=== PATIENT | female | born 1960 | race African-American/Black ===

== ENCOUNTER 2016-11-29 12:44 | Emergency (ER) | payer OTHER ==
[2016-11-29 13:14] LABS: BILIRUBIN NEGATIVE (NEGATIVE); BLOOD 1+ Ery/uL (NEGATIVE); CLARITY CLEAR (CLEAR); COLOR YELLOW (YELLOW); GLUCOSE (U) NORMAL (NORMAL); KETONE (U) NEGATIVE (NEGATIVE); LEUKOCYTES NEGATIVE Leu/uL (NEGATIVE); NITRITE NEGATIVE (NEGATIVE); PROTEIN 2+ mg/dL (NEGATIVE); SPECIFIC GRAVITY 1.025 (1.001-1.030); pH 7.5 (5.0-9.0)
[2016-11-29 13:20] LABS: BACTERIA TRACE; SQUAMOUS EPITHELIAL CELLS RARE; URINARY WBC RARE
[2016-11-29 13:21] LABS: AMPHETAMINES NEGATIVE (NEGATIVE); BARBITURATES NEGATIVE (NEGATIVE); BENZODIAZEPINES NEGATIVE (NEGATIVE); COCAINE NEGATIVE (NEGATIVE); MARIJUANA (THC) NEGATIVE (NEGATIVE); MUCOUS LARGE
[2016-11-29 13:22] LABS: METHADONE NEGATIVE (NEGATIVE); TRICYCLIC ANTIDEPRESSANT NEGATIVE (NEGATIVE)
[2016-11-29 14:38] LABS: HCT 41.9 % (37.0-47.0); HGB 14.8 g/dl (12.5-16.0); MCH 35.1 pg (25.0-31.0); MCHC 35.3 g/dL (32.0-36.0); MCV 99.3 fL (78.0-100.0); MPV 10.9 fL (6.0-9.5); PLT 172 K/uL (150-400); RBC 4.22 M/uL (4.20-5.40); RDW 15.3 % (11.5-14.0); WBC 8.7 K/uL (4.0-10.5)
[2016-11-29 14:43] LABS: LYMPHOCYTE 10 % (15-48); NEUTROPHIL 78 % (41-80)
[2016-11-29 14:44] LABS: BASOPHIL 3 % (0-2); EOSINOPHIL 4 % (0-5); MONOCYTE 5 % (0-12); TARGET CELLS 2+; TOTAL CELL COUNT 100
[2016-11-29 14:45] LABS: PLATELET MORPHOLOGY GIANT; POLYCHROMASIA SLIGHT
[2016-11-29 14:56] LABS: INR 1.05 (0.9-1.2); PROTHROMBIN TIME 13.3 SECONDS (11.7-14.0)
[2016-11-29 14:57] LABS: PTT 28.4 SECONDS (23.2-31.4)
[2016-11-29 15:00] LABS: PLATELET ESTIMATE NORMAL
[2016-11-29 15:09] LABS: ALBUMIN 4.5 g/dL (3.5-5.0); BILIRUBIN - TOTAL 1.3 mg/dL (0.1-1.0); CREATININE 0.4 mg/dL (0.5-1.0); GLOBULIN (CALCULATION) 4.6 g/dL (2.2-4.2); MAGNESIUM 0.94 mg/dL (1.40-2.10); POTASSIUM 3.9 mmol/L (3.5-5.1); TOTAL PROTEIN 9.1 g/dL (6.4-8.3)
== END 2016-11-29 17:22 | disposition other institution (70) ==
LOC: FER 12:44
PROVIDERS: Emergency Medicine
DX: G40.909 Epilepsy, unspecified, not intractable, without status epilepticus (principal); F10.10 Alcohol abuse, uncomplicated; R51 Headache; R11.2 Nausea with vomiting, unspecified; R82.90 Unspecified abnormal findings in urine
CPT/HCPCS: 36415; 70450; 71010; 71020; 80053; 80305; 81001; 83690; 83735; 84484; 85610; 85730; 87040; 87088; 93005; G0480; J1953; J2405